=== PATIENT | male | born 1990 | race Two or more races ===

== ENCOUNTER 2023-12-30 14:40 | Inpatient (IN) | payer SELFPAY ==
[~2023-12-30] VITALS: Ht 165.1 cm; Wt 56.4 kg
[2023-12-30 15:20] VITALS: PULSE 70; RESP 16; O2SAT 100
[2023-12-30 16:11] LABS: Basophils # (auto) 0 10 ^3/uL (0-0.2); Basophils % (auto) 0.3 % (0.0-2.0); Eosinophils # (auto) 0.1 10 ^3/uL (0-0.8); Eosinophils % (auto) 1.6 % (0.0-7.0); Hematocrit 38.2 % (41.0-53.0); Hemoglobin 13.7 g/dL (13.5-17.5); Lymphocytes # (auto) 0.8 10 ^3/uL (0.4-5.4); Lymphocytes % (auto) 14.9 % (10.0-50.0); Mean Corpuscular Hemoglobin 29.2 pg (28.0-32.0); Mean Corpuscular Hgb Conc. 35.8 g/dL (32.0-36.0); Mean Corpuscular Volume 81.6 fL (80.0-100.0); Monocytes # (auto) 0.6 10 ^3/uL (0-1.3); Monocytes % (auto) 11.9 % (0.0-12.0); Neutrophils # (auto) 3.7 10 ^3/uL (1.6-8.6); Neutrophils % (auto) 71.3 % (37.0-80.0); Nucleated Red Blood Cells % 0.3 %; Red Blood Cells 4.68 10^6/uL (4.5-5.90); Red Cell Distribution Width 16.7 % (11.8-14.3); White Blood Cell 5.2 10^3/uL (4.4-10.8)
[2023-12-30 16:29] LABS: Alanine Aminotransferase 114 U/L (7-40); Albumin 4.4 g/dL (3.2-4.8); Alkaline Phosphatase 138 U/L (46-116); Anion Gap 13 (5-15); Aspartate Aminotransferase 111 U/L (13-40); BUN/Creatinine Ratio 15.5 (10.0-20.0); Blood Urea Nitrogen 50 mg/dL (9-23); Calcium 8.5 mg/dL (8.7-10.4); Carbon Dioxide 16 mmol/L (20-30); Chloride 101 mmol/L (98-107); Glucose 107 mg/dL (74-106); Lipase 64 U/L (12-53); Sodium 130 mmol/L (136-145)
[2023-12-30 16:30] LABS: Bilirubin, Total 0.4 mg/dL (0.2-1.0); Total Protein 9.7 g/dL (5.7-8.2)
[2023-12-30 16:34] LABS: Blood Alcohol < 3.0 mg/dL (<10)
[2023-12-30] MEDS: DICYCLOMINE HCL (10MG/ML) 2 ML AMPULE IM ONE (16:45)
[2023-12-30] MEDS ORDERED: POTASSIUM EFFERVESENT TAB 25 MEQ PO ONE (16:45)
[2023-12-30] MEDS ORDERED: POTASSIUM CHLORIDE 40 MEQ, LIDOCAINE 1% (LOCAL ANESTH.) 4 ML in SODIUM CHL 0.9% 250 ML IV ONE (16:45)
[2023-12-30] MEDS: POTASSIUM CHL 20MEQ/100ML 100 ML IV SCH ×2 (17:00→21:00)
[2023-12-30] MEDS ORDERED: ONDANSETRON HCL 4 MG/2 ML VIAL IV PRN (18:15)
[2023-12-30] MEDS ORDERED: DOCUSATE SOD 100 MG CAP PO PRN (18:15)
[2023-12-30] MEDS: SODIUM CHLORIDE 0.9% 1,000 ML IV ONE ×3 (18:15→22:51)
[2023-12-30] MEDS ORDERED: CIPROFLOXACIN 400MG/200ML 200 ML IV ONE (18:15)
[2023-12-30] MEDS: cefTRIAXone 1GM/50ML D5W 50 ML IV SCH (18:36)
[2023-12-30 19:28] LABS: INR 1.03 (0.9-1.15); Prothrombin Time 10.8 sec (9.3-11.8)
[2023-12-30 19:30] VITALS: PULSE 66; RESP 12; O2SAT 100
[2023-12-30 19:35] LABS: Chloride 102 mmol/L (98-107); Sodium 130 mmol/L (136-145)
[2023-12-30 19:36] LABS: Anion Gap 13 (5-15); Calcium 8.4 mg/dL (8.7-10.4); Carbon Dioxide 15 mmol/L (20-30)
[2023-12-30 19:37] LABS: Magnesium 2.3 mg/dL (1.6-2.6); Potassium 1.8 mmol/L (3.5-5.1)
[2023-12-30 19:38] LABS: Phosphorus 5.7 mg/dL (2.4-5.1)
[2023-12-30 19:41] LABS: BUN/Creatinine Ratio 15.8 (10.0-20.0); Blood Urea Nitrogen 51 mg/dL (9-23); Glucose 97 mg/dL (74-106)
[2023-12-30 20:05] LABS: Potassium 2.1 mmol/L (3.5-5.1)
[2023-12-30] MEDS: metroNIDAZOLE 500MG/100ML 100 ML IV ONE (21:02)
[2023-12-30] MEDS ORDERED: CIPROFLOXACIN 400MG/200ML 200 ML IV SCH (22:00)
[2023-12-30] MEDS: SODIUM CHLORIDE 0.9% 1,000 ML IV SCH (22:33)
[2023-12-30] MEDS: POTASSIUM EFFERVESENT TAB 25 MEQ PO ONE (22:50)
[2023-12-30] MEDS: SOD CHL 0.9%/ KCL 20MEQ 1,000 ML IV SCH (22:56)
[2023-12-30 23:40] VITALS: O2SAT 100
[2023-12-31] VITALS (8 sets, daily range): BP systolic 95–104; BP diastolic 59–74; PULSE 63–85; RESP 16–18; TEMP 97.6–98.1; O2SAT 94–100
[2023-12-31 02:10] LABS: Chloride 111 mmol/L (98-107); Potassium 2.8 mmol/L (3.5-5.1)
[2023-12-31 02:11] LABS: Anion Gap 11 (5-15); Carbon Dioxide 13 mmol/L (20-30)
[2023-12-31 02:12] LABS: Calcium 7.6 mg/dL (8.7-10.4)
[2023-12-31 02:15] LABS: Sodium 135 mmol/L (136-145)
[2023-12-31 02:17] LABS: BUN/Creatinine Ratio 12.6 (10.0-20.0); Blood Urea Nitrogen 33 mg/dL (9-23); Glucose 83 mg/dL (74-106)
[2023-12-31] MEDS: metroNIDAZOLE 500MG/100ML 100 ML IV SCH (02:23)
[2023-12-31] MEDS: POTASSIUM CHL 20MEQ/100ML 100 ML IV SCH ×3 (02:56→17:15)
[2023-12-31 07:18] LABS: Basophils # (auto) 0 10 ^3/uL (0-0.2); Basophils % (auto) 0.5 % (0.0-2.0); Eosinophils # (auto) 0 10 ^3/uL (0-0.8); Eosinophils % (auto) 1.1 % (0.0-7.0); Hemoglobin 11.3 g/dL (13.5-17.5); Lymphocytes # (auto) 0.7 10 ^3/uL (0.4-5.4); Lymphocytes % (auto) 15.9 % (10.0-50.0); Mean Corpuscular Hemoglobin 29.3 pg (28.0-32.0); Mean Corpuscular Hgb Conc. 34.3 g/dL (32.0-36.0); Mean Corpuscular Volume 85.3 fL (80.0-100.0); Monocytes # (auto) 0.6 10 ^3/uL (0-1.3); Monocytes % (auto) 12.2 % (0.0-12.0); Neutrophils # (auto) 3.2 10 ^3/uL (1.6-8.6); Neutrophils % (auto) 70.3 % (37.0-80.0); Nucleated Red Blood Cells % 0.2 %; Red Blood Cells 3.86 10^6/uL (4.5-5.90); Red Cell Distribution Width 16.8 % (11.8-14.3); White Blood Cell 4.6 10^3/uL (4.4-10.8)
[2023-12-31 07:48] LABS: Alanine Aminotransferase 91 U/L (7-40); Albumin 3.5 g/dL (3.2-4.8); Alkaline Phosphatase 108 U/L (46-116); Anion Gap 11 (5-15); Aspartate Aminotransferase 98 U/L (13-40); BUN/Creatinine Ratio 12.2 (10.0-20.0); Blood Urea Nitrogen 31 mg/dL (9-23); Calcium 7.8 mg/dL (8.7-10.4); Carbon Dioxide 12 mmol/L (20-30); Chloride 113 mmol/L (98-107); Glucose 96 mg/dL (74-106); Lipase 216 U/L (12-53); Potassium 2.7 mmol/L (3.5-5.1); Sodium 136 mmol/L (136-145)
[2023-12-31 07:49] LABS: Bilirubin, Total 0.3 mg/dL (0.2-1.0)
[2023-12-31 10:02] LABS: Alanine Aminotransferase 94 U/L (7-40); Albumin 3.6 g/dL (3.2-4.8); Alkaline Phosphatase 110 U/L (46-116); Anion Gap 11 (5-15); Aspartate Aminotransferase 104 U/L (13-40); BUN/Creatinine Ratio 11.8 (10.0-20.0); Bilirubin, Total 0.2 mg/dL (0.2-1.0); Blood Urea Nitrogen 30 mg/dL (9-23); Calcium 8.1 mg/dL (8.5-10.1); Carbon Dioxide 13 mmol/L (20-30); Chloride 112 mmol/L (98-107); Glucose 91 mg/dL (74-106); Sodium 136 mmol/L (136-145); Total Protein 8.1 g/dL (5.7-8.2)
[2023-12-31 10:35] LABS: Potassium 2.4 mmol/L (3.5-5.1)
[2023-12-31] MEDS: POTASSIUM CHL 20 Meq TABLET PO SCH (18:05)
[2023-12-31] MEDS: MORPHINE SULFATE INJ 2 MG/ml SYRG IV PRN (18:23)
[2023-12-31 19:31] LABS: Alanine Aminotransferase 98 U/L (7-40); Albumin 3.8 g/dL (3.2-4.8); Alkaline Phosphatase 115 U/L (46-116); Anion Gap 9 (5-15); Aspartate Aminotransferase 111 U/L (13-40); BUN/Creatinine Ratio 9.5 (10.0-20.0); Blood Urea Nitrogen 24 mg/dL (9-23); Calcium 8.3 mg/dL (8.7-10.4); Carbon Dioxide 13 mmol/L (20-30); Chloride 113 mmol/L (98-107); Glucose 87 mg/dL (74-106); Potassium 3.2 mmol/L (3.5-5.1); Sodium 135 mmol/L (136-145)
[2023-12-31 19:32] LABS: Bilirubin, Total 0.2 mg/dL (0.2-1.0); Total Protein 8.8 g/dL (5.7-8.2)
[2023-12-31 21:47] LABS: Sodium Urine 10 mmol/L (40-220)
[2023-12-31 21:53] LABS: Urine Bacteria NONE SEEN /hpf (None Seen); Urine Blood 1+ /uL (Negative); Urine Clarity Clear (Clear); Urine Color Yellow (Yellow); Urine Protein, UAD 1+ (Negative); Urine Specific Gravity 1.009 (1.001-1.035); Urine Urobilinogen Normal (Negative); Urine WBC 1 /hpf (0 - 3)
[2023-12-31 21:54] LABS: Barbiturate Scree,Urine Neg (NEGATIVE); Benzodiazephine Screen, Urine Neg (NEGATIVE); Cannabinoid Screen, Urine Neg (NEGATIVE); Cocaine Screen, Urine Neg (NEGATIVE); Creatinine, Urine 67.11 mg/dL (30.0-125.0); Opiate Scree,Urine Neg (NEGATIVE); Phencyclidine Screen, Urine Neg (NEGATIVE)
[2023-12-31 21:55] LABS: Amphetamine Screen, Urine Neg (NEGATIVE)
[2024-01-01] VITALS (7 sets, daily range): BP systolic 100–115; BP diastolic 64–78; PULSE 70–82; RESP 14–17; TEMP 97.4–98.3; O2SAT 97–100
[2024-01-01 06:19] LABS: Anion Gap 10 (5-15); Carbon Dioxide 11 mmol/L (20-30); Chloride 115 mmol/L (98-107); Potassium 3.3 mmol/L (3.5-5.1); Sodium 136 mmol/L (136-145)
[2024-01-01 06:20] LABS: Calcium 8.8 mg/dL (8.5-10.1)
[2024-01-01 06:25] LABS: BUN/Creatinine Ratio 8.9 (10.0-20.0); Blood Urea Nitrogen 23 mg/dL (9-23); Glucose 75 mg/dL (74-106)
[2024-01-01 09:17] LABS: Hepatitis B Core Total AB Negative (Negative)
[2024-01-01 10:44] LABS: Hepatitis B Surface Antigen Negative (Negative)
[2024-01-01 11:05] LABS: Hepatitis A Ab IgM Negative
[2024-01-01 11:06] LABS: Hepatitis B Core IgM Negative; Hepatitis C Antibody Negative (Negative)
[2024-01-01 11:32] LABS: Hepatitis A Total Antibody Positive (Negative); Hepatitis B Surface Antibody Negative (Negative); Hepatitis B Surface Antigen Negative (Negative); Hepatitis C Antibody Negative (Negative)
[2024-01-01] MEDS: SODIUM BICARBONATE 50ML VIAL 50 ML in SOD CHL 0.45% 1,000 ML IV SCH (15:44)
[2024-01-01] MEDS: VANCOMYCIN HCL 125 MG CAP PO SCH (18:21)
[2024-01-01] MEDS ORDERED: LOPERAMIDE HCL 2 MG CAP/TAB PO PRN (19:00)
[2024-01-02 05:00] VITALS: BP 126/69; PULSE 73; RESP 18; TEMP 97.9; O2SAT 99
[2024-01-02 05:07] LABS: Basos 0 % (Not Estab.); Eos 1 % (Not Estab.); Hematocrit 40.3 % (37.5-51.0); Hemoglobin 13.9 g/dL (13.0-17.7); Lymphs 18 % (Not Estab.); Lymphs (Absolute) 0.7 x10E3/uL (0.7-3.1); MCH 29.4 pg (26.6-33.0); MCHC 34.5 g/dL (31.5-35.7); MCV 85 fL (79-97); Monocytes 8 % (Not Estab.); Monocytes (Absolute) 0.3 x10E3/uL (0.1-0.9); Neutrophils 72 % (Not Estab.); Platelets 190 x10E3/uL (150-450); RBC 4.72 x10E6/uL (4.14-5.80); RDW 16.3 % (11.6-15.4); WBC 4.1 x10E3/uL (3.4-10.8)
[2024-01-02 08:00] VITALS: PULSE 84
[2024-01-02 09:00] VITALS: BP 104/75; PULSE 78; RESP 17; TEMP 97.9; O2SAT 100
[2024-01-02] MEDS: FLORASTOR (S. BOULARDII) 250 MG CAP PO SCH (09:29)
[2024-01-02 11:07] LABS: % CD 4 Pos Lymph 5.6 % (30.8-58.5); % CD 8 Pos Lymph 61.2 % (12.0-35.5); Absolute CD 4 Helper 39 /uL (359-1519); CD4/CD8 Ratio 0.09 (0.92-3.72)
[2024-01-02 13:00] VITALS: BP 101/67; PULSE 72; RESP 16; TEMP 98; O2SAT 100
[2024-01-02 17:00] VITALS: BP 104/72; PULSE 83; RESP 15; TEMP 98; O2SAT 97
[2024-01-02] MEDS: CALCIUM ACETATE 667 MG CAP PO SCH (17:33)
== END 2024-01-02 18:00 | disposition left against medical advice (07) | DRG 371 ==
LOC: ER 14:40 → OVERFLOW 18:26 → EAST 12-31 03:24 → TELE-EAST 01-01 06:49
PROVIDERS: ADMIT Nurse Practitioner Family; ATTEND Internal Medicine
DX: A04.72 Enterocolitis due to Clostridium difficile, not specified as recurrent (principal); K85.90 Acute pancreatitis without necrosis or infection, unspecified; B20 Human immunodeficiency virus [HIV] disease; N17.9 Acute kidney failure, unspecified; E87.1 Hypo-osmolality and hyponatremia; E87.20 Acidosis, unspecified; E86.0 Dehydration; E87.6 Hypokalemia; E88.A Wasting disease (syndrome) due to underlying condition; R62.7 Adult failure to thrive; Z53.29 Procedure and treatment not carried out because of patient's decision for other reasons; R74.01 Elevation of levels of liver transaminase levels; N18.32 Chronic kidney disease, stage 3b; E83.39 Other disorders of phosphorus metabolism; I95.9 Hypotension, unspecified; Z91.148 Patient's other noncompliance with medication regimen for other reason; Z68.20 Body mass index [BMI] 20.0-20.9, adult
CPT/HCPCS: 36415; 74176; 76705; 76775; 80048; 80053; 80074; 80307; 80320; 81001; 82570; 82607; 83690; 83735; 83986; 84100; 84132; 84156; 84300; 85025; 85048; 85610; 86360; 86644; 86645; 86704; 86706; 86708; 86803; 87045; 87086; 87177; 87340; 87427; 87493; 93005; 96361; 96365; 96368; 99291; G0378; J2001; J3480; J3490